=== PATIENT | female | born 1975 | race Caucasian/White ===

== ENCOUNTER 2024-09-04 10:50 | Inpatient (IN) | payer OTHER ==
[~2024-09-04] VITALS: Ht 172.7 cm; Wt 89.4 kg
[~2024-09-04 10:50] MED LIST: ALPR2TAB3 PO; FLUO40CA PO
[2024-09-04] MEDS ORDERED: ALPR1TAB3 PO (11:55)
[2024-09-04] MEDS ORDERED: ALPR0.25 PO (11:55)
[2024-09-04] MEDS ORDERED: GABA-1490 PO (11:55)
[2024-09-04] MEDS ORDERED: METF10004 PO (11:55)
[2024-09-04] MEDS ORDERED: HOME MED LIST COMPLETE! XX SCH (12:00)
[2024-09-04] MEDS: FLUoxetine 20 MG CAP PO SCH (13:22)
[2024-09-04] MEDS: ALPRAZolam 0.25 MG TAB PO PRN (15:30)
[2024-09-04] MEDS: ALPRAZolam 0.5 MG TAB PO PRN (15:30)
[2024-09-04] MEDS: NICOTINE 21MG/24HR 1 EA TRANSDERMAL TD SCH (15:46)
[2024-09-04] MEDS ORDERED: GABAPENTIN 300 MG CAP PO SCH (21:00)
[2024-09-04] MEDS: GABAPENTIN 300 MG CAP PO SCH (21:23)
[2024-09-05] MEDS ORDERED: FLUoxetine 20 MG CAP PO SCH (09:00)
[2024-09-05 13:20] LABS: APPEARANCE, URINE HAZY (CLEAR); BACTERIA, URINE AUTO NEGATIVE (NEGATIVE); BILIRUBIN, URINE AUTO NEGATIVE (NEGATIVE); BLOOD, URINE BLOOD NEGATIVE (NEGATIVE); GLUCOSE, URINE (UA) AUTO 3+ mg/dL (NEGATIVE); KETONE, URINE AUTO 1+ mg/dL (NEGATIVE); LEUKOCYTE ESTERASE, URINE AUTO NEGATIVE (NEGATIVE); NITRITE, URINE AUTO NEGATIVE (NEGATIVE); PROTEIN, URINE AUTO NEGATIVE (NEGATIVE); RBC, URINE AUTO 2 /HPF (0-3); SPECIFIC GRAVITY URINE AUTO 1.023 (1.002-1.035); SQUAMOUS EPITHELIAL CELL UR AU 3 /HPF (0-6); UROBILINOGEN, URINE AUTO 0.2 mg/dL (0.0-2.0); WBC, URINE AUTO 0 /HPF (0-3)
[2024-09-06] MEDS: IBUPROFEN 400 MG TAB PO PRN (09:53)
[2024-09-06] MEDS ORDERED: HALOPERIDOL 5 MG TAB PO PRN (11:55)
[2024-09-06] MEDS ORDERED: ACETAMINOPHEN 325 MG TAB PO PRN (11:55)
[2024-09-06] MEDS ORDERED: OLANZapine 5 MG TAB PO PRN (11:55)
[2024-09-06] MEDS ORDERED: traZODone 50 MG TAB PO PRN (11:55)
[2024-09-06] MEDS ORDERED: GLUCOSE 4 GM CHEW PO PRN (12:25)
[2024-09-06] MEDS ORDERED: GLUCAGON INJ 1 MG VIAL SC PRN (12:25)
[2024-09-06] MEDS ORDERED: HumuLIN R (REGULAR) INSULIN (NovoLIN R) **100 U/ML** PER UNIT SC STA (12:33)
[2024-09-06] MEDS: INSULIN LISPRO (NovoLOG) PER UNIT SC SCH ×2 (12:41→23:12)
[2024-09-06 14:25] VITALS: BP 121/71; TEMP 97.6; O2SAT 99
[2024-09-06] MEDS: ALPRAZolam 0.5 MG TAB PO PRN (15:03)
[2024-09-06] MEDS: GABAPENTIN 300 MG CAP PO SCH (20:10)
[2024-09-06] MEDS: MAALOX 30 ML SUSP *UDC PO PRN (20:16)
[2024-09-06] MEDS ORDERED: DEXTROSE 50% 50 ML SYRINGE IV PRN (22:55)
[2024-09-06] MEDS: LanTUS (INSULIN GLARGINE INJ) 1 UNITS/0.01 ML SC ONE (23:12)
[2024-09-06 23:22] VITALS: BP 155/78; TEMP 98.4; O2SAT 97
[2024-09-07] MEDS: MOM 30 ML SUSPENSION UDC PO PRN (00:43)
[2024-09-07] MEDS: LORazepam 1 MG TAB PO PRN (00:44)
[2024-09-07 06:18] VITALS: BP 170/93; TEMP 97.4; O2SAT 99
[2024-09-07 06:43] VITALS: BP 144/78
[2024-09-07] MEDS: INSULIN LISPRO (NovoLOG) PER UNIT SC SCH ×2 (06:59→18:57)
[2024-09-07] MEDS: FLUoxetine 20 MG CAP PO SCH (08:15)
[2024-09-07] MEDS: ASPIRIN 81 MG ENTERIC TABLET PO SCH (08:15)
[2024-09-07] MEDS: NICOTINE 14 MG/24 HR TRANSDERMAL TD SCH (08:16)
[2024-09-07] MEDS: LanTUS (INSULIN GLARGINE INJ) 1 UNITS/0.01 ML SC SCH (09:00)
[2024-09-07 12:31] LABS: BASO # 0.1 10^3/uL (0.0-0.2); BASO % 1.0 % (0.0-1.0); EOS # 0.1 10^3/uL (0.0-0.5); EOS % 0.6 % (0.0-3.0); LYMPH # 1.9 10^3/uL (1.5-5.0); LYMPH % 23.6 % (24.0-44.0); MONO # 0.6 10^3/uL (0.0-0.8); MONO % 7.1 % (2.0-8.0); NEUTROPHILS # 5.4 10^3/uL (1.5-8.5); NEUTROPHILS % 67.5 % (36.0-66.0); PLATELET COUNT, AUTOMATED 304 10^3/uL (150-450)
[2024-09-07 12:44] LABS: ESTIMATED AVERAGE GLUCOSE 275.0 MG/DL (60-110)
[2024-09-07 13:00] LABS: CALCIUM LEVEL 9.3 MG/DL (8.5-10.1); CARBON DIOXIDE LEVEL 28 MMOL/L (20-31); CHLORIDE LEVEL 98 MMOL/L (98-107); CREATININE FOR GFR 0.48 MG/DL (0.55-1.30); GLOMERULAR FILTRATION RATE > 90.0 (>58); POTASSIUM SERUM 4.5 MMOL/L (3.5-5.1); SODIUM LEVEL 134 MMOL/L (136-145)
[2024-09-07] MEDS: ALPRAZolam 0.5 MG TAB PO PRN (16:50)
[2024-09-07 17:25] VITALS: BP 143/88; TEMP 97.7; O2SAT 97
[2024-09-07] MEDS ORDERED: LanTUS (INSULIN GLARGINE INJ) 1 UNITS/0.01 ML SC SCH ×2 (21:00)
[2024-09-08 06:38] VITALS: BP 126/59; TEMP 98.1; O2SAT 98
[2024-09-08] MEDS: IBUPROFEN 400 MG TAB PO PRN (07:28)
[2024-09-08] MEDS: ONDANSETRON 4MG ORAL DISINTEGRATING TAB PO PRN (13:02)
[2024-09-08] MEDS: ALPRAZolam 0.5 MG TAB PO SCH (14:12)
[2024-09-08 15:33] VITALS: BP 104/64; TEMP 97.1; O2SAT 96
[2024-09-09 06:31] VITALS: BP 145/78; TEMP 97.9; O2SAT 99
[2024-09-09] MEDS ORDERED: BLOOKIT21 XX (10:00)
[2024-09-09] MEDS ORDERED: INSU100I24 SQ (10:00)
[2024-09-09] MEDS ORDERED: PEN-308 SC (10:00)
[2024-09-09] MEDS ORDERED: LANC30MI XX (10:00)
[2024-09-09] MEDS ORDERED: GLUC1TES2 XX (10:00)
[2024-09-09] MEDS ORDERED: LANTINJ4 SC (10:00)
[2024-09-09] MEDS ORDERED: PEN-61 SC (10:00)
[2024-09-09] MEDS ORDERED: ALCOPAD25 TOP (10:00)
[2024-09-09] MEDS ORDERED: INSU1MIS20 SC (10:00)
== END 2024-09-09 10:45 | disposition home or self-care (01) | DRG 751 ==
LOC: M ED 10:50 → M ED INP 09-06 11:53 → M PSY 09-06 13:01
PROVIDERS: ADMIT Internal Medicine; ATTEND Internal Medicine
DX: F33.1 Major depressive disorder, recurrent, moderate (principal); F41.1 Generalized anxiety disorder; F41.0 Panic disorder [episodic paroxysmal anxiety]; E11.42 Type 2 diabetes mellitus with diabetic polyneuropathy; R45.851 Suicidal ideations; F17.210 Nicotine dependence, cigarettes, uncomplicated; R03.0 Elevated blood-pressure reading, without diagnosis of hypertension; Z79.84 Long term (current) use of oral hypoglycemic drugs; Z79.899 Other long term (current) drug therapy; Z88.0 Allergy status to penicillin; Z88.1 Allergy status to other antibiotic agents; Z88.2 Allergy status to sulfonamides